=== PATIENT | male | born 1960 ===

== ENCOUNTER 2016-12-03 07:35 | Emergency (ER) | payer OTHER ==
[~2016-12-03] VITALS: Ht 182.9 cm; Wt 100.5 kg
[2016-12-03 07:40] VITALS: Ht 182.9 cm; Wt 100.5 kg
[2016-12-03] MEDS ORDERED: KEN1O TOP (08:16)
[2016-12-03] MEDS ORDERED: PRED20TA PO (08:16)
[2016-12-03] MEDS ORDERED: KEN25L60 TOP (08:16)
--- NOTE | 2016-12-03 08:33 | ERD ---
ER Documentation Chief Complaint Chief Complaint GENERALIZED BODY RASH X2 YEARS THAT COMES AND GOES. FOOT WOUND, NOT HEALING HPI This is a 48-year-old male, with past medical history for non insulin dependent diabetes, presenting to emergency department for rash to right foot. Patient states this has been an ongoing rash intermittently for the past 2 years. Patient has been applying Neosporin and hydrocortisone cream to rash to medial aspect of right ankle. Patient denies any injury or fall. No laceration or open areas. No erythema, warmth or drainage. ROS All systems reviewed and are negative except as per history of present illness. Medications Home Meds Active Scripts Prednisone* (Prednisone*) 20 Mg Tab, 20 MG PO DAILY for 3 Days, TAB Prov:VALENTE JIMÉNEZ NP 12/03/16 Triamcinolone Acetonide* (Kenalog*) 0.025%-60ML Lotion, 1 APPLIC TOP BID for 7 Days, #1 BOTTLE to arms Prov:VALENTE JIMÉNEZ NP 12/03/16 Triamcinolone Acetonide* (Kenalog*) 0.1%-15GM Oint, 1 APPLIC TOP BID for 7 Days , #1 EA to foot Prov:VALENTE JIMÉNEZ NP 12/03/16 Allergies Allergies: Coded Allergies: No Known Allergy (Unverified , 12/03/16) PMhx/Soc Medical and Surgical Hx: pt denies Medical Hx, pt denies Surgical Hx Hx Alcohol Use: No Hx Substance Use: No Hx Tobacco Use: No Physical Exam Vitals Vital Signs Date Time Temp Pulse Resp B/P Pulse Ox O2 Delivery O2 Flow Rate FiO2 12/03/16 07:40 97.3 86 18 137/92 95 Physical Exam Const: No acute distress, alert Head: Atraumatic Eyes: Normal Conjunctiva ENT: Normal External Ears, Nose and Mouth. Neck: Full range of motion..~ No meningismus. Resp: Clear to auscultation bilaterally Cardio: Regular rate and rhythm, no murmurs Abd: Soft, non tender, non distended. Normal bowel sounds Skin: 3 inch x 4 inch rash to medial aspect of right ankle. no drainage, warmth or bleeding. No lymphatic streaking. There is sloughing of skin and thickened areas. no pain to palpation. Back: No midline or flank tenderness Ext: No cyanosis, or edema Neur: Awake and alert Psych: Normal Mood and Affect Procedures/MDM MDM: This is a 56-year-old male presenting to emergency department for pruritic rash that has been ongoing intermittently for the past 2 years. Patient has been applying Neosporin and hydrocortisone cream. Rash does not look infected patient is afebrile vital signs are stable. Patient also states in the past 2 weeks he has developed generalized pruritus to upper extremities. No lesions seen. No wheals. No signs or symptoms of respiratory distress. Patient is talking normally. Dr. Phillip Vigil also examined patient and we that patient is appropriate for outpatient management and will be discharged with prescription for triamcinolone ointment, triamcinolone lotion and prednisone. Differential diagnosis includes but not limited to allergic dermatitis, to contact dermatitis, eczema and psoriasis. Patient is appropriate for outpatient management will be given prescription for triamcinolone ointment .1%, triamcinolone lotion 0.25% and prednisone 20mg daily x 3 days. Instructed patient to follow-up with primary care provider in the next 2-3 days for reassessment and additional management. May need referral to public transit trolley driver. Resources provided. Return to ED for any high fever , chest pain, difficulty breathing, shortness breath, wheezing, vomiting, diarrhea, abdominal pain or any new or worsening symptoms. Patient verbalizes understanding. All questions answered at discharge. Disclaimer: Inadvertent spelling and grammatical errors are likely due to EHR/ dictation software use and do not reflect on the overall quality of patient care. Also, please note that the electronic time recorded on this note does not necessarily reflect the actual time of the patient encounter. Departure Diagnosis: Primary Impression: Dermatitis Condition: Stable Patient Instructions: Contact Dermatitis, Dermatitis, Non-Specific Referrals: FAMILIA TORREZ MD, MICHAEL T. [facility] YOU HAVE RECEIVED A MEDICAL SCREENING EXAM AND THE RESULTS INDICATE THAT YOU DO NOT HAVE A CONDITION THAT REQUIRES URGENT TREATMENT IN THE EMERGENCY DEPARTMENT. FURTHER EVALUATION AND TREATMENT OF YOUR CONDITION CAN WAIT UNTIL YOU ARE SEEN IN YOUR DOCTORS OFFICE WITHIN THE NEXT 1-2 DAYS. IT IS YOUR RESPONSIBILITY TO MAKE AN APPOINTMENT FOR FOLOW-UP CARE. IF YOU HAVE A PRIMARY DOCTOR --you should call your primary doctor and schedule an appointment IF YOU DO NOT HAVE A PRIMARY DOCTOR YOU CAN CALL OUR PHYSICIAN REFERRAL HOTLINE AT IF YOU CAN NOT AFFORD TO SEE A PHYSICIAN YOU CAN CHOSE FROM THE FOLLOWING COMMUNITY CLINICS [facility] [address] [facility] [address] [facility] [address] [facility] [address] [facility] [address] [facility]. [facility] [address] [facility] [facility] YOU HAVE RECEIVED A MEDICAL SCREENING EXAM AND THE RESULTS INDICATE THAT YOU DO NOT HAVE A CONDITION THAT REQUIRES URGENT TREATMENT IN THE EMERGENCY DEPARTMENT. FURTHER EVALUATION AND TREATMENT OF YOUR CONDITION CAN WAIT UNTIL YOU ARE SEEN IN YOUR DOCTORS OFFICE WITHIN THE NEXT 1-2 DAYS. IT IS YOUR RESPONSIBILITY TO MAKE AN APPOINTMENT FOR FOLOW-UP CARE. IF YOU HAVE A PRIMARY DOCTOR --you should call your primary doctor and schedule and appointment IF YOU DO NOT HAVE A PRIMARY DOCTOR YOU CAN CALL OUR PHYSICIAN REFERRAL HOTLINE AT . IF YOU CAN NOT AFFORD TO SEE A PHYSICIAN YOU CAN CHOSE FROM THE FOLLOWING [facility] INSTITUTIONS: [facility] [address] [place] [address] [facility] [address] [place] [address] [facility] [address] [place] [address] Additional Instructions: Call your primary care doctor TOMORROW for an appointment during the next 2-3 days.See the doctor sooner or return here if your condition worsens before your appointment time. Return to ED for any high fever, chest pain, difficulty breathing, shortness breath, wheezing, vomiting, diarrhea, abdominal pain or any new or worsening symptoms. VALENTE JIMÉNEZ NP Dec 03, 2016 08:33
== END 2016-12-03 08:49 | disposition home or self-care (01) ==
LOC: FTE 07:35
DX: L30.9 Dermatitis, unspecified (principal)
CPT/HCPCS: 99284